=== PATIENT | female | born 1985 | race Caucasian/White ===

== ENCOUNTER → 2017-10-10 | Outpatient (CLI) | payer BC ==
[~2017-10-10] MED LIST: CYCL10TA29 PO; HYDR-4309 PO; IBU800 PO; IBUP600T22 PO; IOPAMIDOL 76% 75 ML INFUS BTL 75 ML ONE; KET10 PO; LOR5 PO; NS 0.9% 20 ML SDV 40 ML ONE
[2017-10-10 12:25] LABS: PLATELET COUNT, AUTOMATED 266 K/uL (150-450)
--- NOTE | 2017-10-10 17:18 | RADIOLOGY IMAGING REPORT ---
FACILITY: [facility] PATIENT NAME: Lili Vincent : 1985 MR: [id number] V: [id number] EXAM DATE: ORDERING PHYSICIAN: KAMILA TAM TECHNOLOGIST: Location: [facility] Patient: Lili Vincent : 1985 Visit/Account:[id number] Date of Sevice: 10/10/2017 Computed tomograpy abdomen and pelvis with IV contrast Indication: Right lower quadrant pain. Fever. Comparison: None available. . Technique: Transaxial computed tomography images were obtained through the abdomen and pelvis follo wing the injection of nonionic iodinated intravenous contrast. Reformatted coronal and sagittal image s were also obtained. One of the following dose optimization techniques was utilized in the performance of this exam: Autom ated exposure control; adjustment of the mA and/or kV according to the patient's size; or use of an i terative reconstruction technique. Specific details can be referenced in the facility's radiology C T exam operational policy. Contrast: 75 ml of Isovue-370 IV contrast. Findings: Lower lung sidhu: Limited views lower lung field are unremarkable. Liver: No focal parenchymal abnormality of the liver. Biliary: Gallbladder is partially contracted. No biliary dilatation. Pancreas: Normal appearance. Spleen: Normal appearance. Adrenal glands: Unremarkable. Kidneys / retroperitoneum: No evidence of nephrolithiasis or hydronephrosis Bowel / peritoneum / mesenteries: The appendix is abnormally dilated and thick walled within the righ t pelvis anteriorly. There is surrounding inflammatory stranding. There is a small calcified phleboli th within the base of the appendix. Findings are compatible with acute appendicitis. There is no extr aluminal gas or fluid collection. There are scattered mildly enlarged reactive lymph nodes within the ileocolonic mesentery. No evidence of small bowel dilatation. Lymph node assessment: No pathologic adenopathy identified. Pelvic structures: There is trace free pelvic fluid. There is oval-shaped cyst within the right ov chioma measuring up to 2.6 cm in size. This is likely physiologic in a female this age. Vessels: No significant atherosclerotic calcifications seen throughout a nonaneurysmal abdominal aort a and branches. Musculoskeletal / Body wall: Sclerosis is seen within the parasymphyseal pubic bones which is likely degenerative. No widening of the pubic symphysis. There is likely unilateral right-sided osteitis con densans ilii present. IMPRESSION: 1. CT findings compatible with acute appendicitis. No evidence of extraluminal gas or pelvic abscess. There are reactive surrounding lymph nodes. 2. Small right ovarian cyst, likely physiologic in a female patient this age. 3. Trace free pelvic fluid. Results were discussed with KAMILA TAM at 10/10/2017 5:14 PM. Report Dictated By: Camilo Bates at 10/10/2017 4:27 PM Report E-Signed By: Camilo Bates at 10/10/2017 5:14 PM WSN:[id number]
== END ==
LOC: CT 12:07
PROVIDERS: ATTEND Nurse Practitioner Family
DX: R93.5 Abnormal findings on diagnostic imaging of other abdominal regions, including retroperitoneum (principal); N83.201 Unspecified ovarian cyst, right side
CPT/HCPCS: 36415; 74177; 82565; 85025; J7050; Q9967

== ENCOUNTER → 2017-10-10 | Day surgery (SDC) | payer BC ==
[~2017-10-10] VITALS: Ht 170.2 cm; Wt 100.7 kg
[~2017-10-10] MED LIST changes: +DEXAMETHASONE SOD 4 MG/ML VIAL ONE; +FAMOTIDINE 20 MG/50 ML PREMIX IVPB ONE; -IOPAMIDOL 76% 75 ML INFUS BTL 75 ML ONE; +KETOROLAC 30 MG/ML VIAL ONE; +LIDOCAINE MPF 1% 5 ML VIAL ONE; +LIDOCAINE/SOD BICARB 8.4% SYR ID ONE; +MIDAZOLAM 2 MG/2 ML VIAL IVP PRN; +NORMOSOL R SOLN(*) 1000 ML BAG 1,000 ML IV PRN; -NS 0.9% 20 ML SDV 40 ML ONE; +ONDANSETRON 4 MG/2 ML VIAL ONE; +PROPOFOL EMUL(*) 10MG/ML 20 ML 20 ML ONE; +ROCURONIUM BROM 10 MG/ML 10 ML ONE; +ROPIVACAINE 0.2% 20 ML VIAL ONE; +SUGAMMADEX SOD 200 MG/2 ML SDV ONE; +cefOXitin/DEX(*) 2GM/50ML PREM 50 ML IVPB ONE; +fentaNYL CITR 100 MCG/2 ML AMP ONE; +fentaNYL CITR 250 MCG/5 ML AMP ONE
--- NOTE | 2017-10-10 17:37 | General Surgery 1 H&P ---
History of Present Illness Chief Complaint right lower quadrant pain History of Present Illness 32 yo female with a four day history of right lower quadrant pain. it has increased in severity. it is a steady aching pain. no nausea or emesis. she has had a fever. she has an appetite. she has some pain with bm and urination. ct obtained which shows findings consistent with appendicitis. History Other Past Surgeries: tonsil Home Meds Active Scripts Ibuprofen (IBUPROFEN) 600 Mg Tablet, 1 TAB PO Q6H, #40 TAB Prov:JIN IBRAHIM 05/07/16 Cyclobenzaprine Hcl (CYCLOBENZAPRINE HCL) 10 Mg Tablet, 5-10 MG PO TID Y for MUSCLE SPASMS, #15 TAB Prov:JIN IBRAHIM 05/07/16 Allergies: Coded Allergies: No Known Drug Allergies (Verified , 05/07/16) Review of Systems History of Hypertension?: No History of Diabetes?: No History of DVT?: No Obstructive Sleep Apnea?: No History of Liver Disease?: No History of Kidney Disease?: No Respiratory: Denies Shortness of Breath, Denies Other Cardiovascular: Denies Chest Pain, Denies Other Exam General Appearance: Alert, Awake GI: Other (she has tenderness and guarding in the right lower quadrant) Assessment and Plan Problems: (1) Appendicitis Assessment & Plan: lap appy Copies to: KENDY GANNON MD; KAMILA TAM Venous Thromboembolism Antithrombotics Is Pt On Any Antithrombotics?: No KENDY GANNON MD Oct 10, 2017 17:37
--- NOTE | 2017-10-10 17:38 | Post Operative Progress Note ---
Post Operative Progress Note Date: Oct 10, 2017 Time: 18:35 Surgeon: catrachita Anesthesia: dr young Pre-Op Diagnosis: appendicitis Post-Op Diagnosis: same Procedure(s): KENDY Daniels MD Oct 10, 2017 17:38
--- NOTE | 2017-10-10 17:39 | Short(Outpt) Discharge Summary ---
Discharge Summary Reason for Hosp/Final Diag: (1) Appendicitis Hospital Course & Plan: dawson norris, she had an acutely inflamed appendix Departure Discharge to: Home Discharge Instructions Home Meds Active Scripts Ibuprofen (IBUPROFEN) 600 Mg Tablet, 1 TAB PO Q6H, #40 TAB Prov:JIN IBRAHIM [facility] 05/07/16 Cyclobenzaprine Hcl (CYCLOBENZAPRINE HCL) 10 Mg Tablet, 5-10 MG PO TID Y for MUSCLE SPASMS, #15 TAB Prov:JIN IBRAHIM [facility] 05/07/16 Diet: Regular Activity: As Tolerated Special Instructions: ice to incisions for 48 hours remove bandage and shower saturday to see me in one week, call [phone] for apt scripts for toradol and norco given to KENDY Sterling MD Oct 10, 2017 17:39
[2017-10-10 17:44] VITALS: BP 135/85
[2017-10-10 19:30] VITALS: BP 111/75
[2017-10-10 19:45] VITALS: BP 114/64
[2017-10-10 19:52] VITALS: BP 118/77
[2017-10-10 19:55] VITALS: BP 114/82
--- NOTE | 2017-10-10 23:13 | OPERATIVE REPORT 1 ---
EVENT DATE: October 10, 2017 SURGEON: Frandy Mcfarland MD ANESTHESIOLOGIST: Darrell Crook MD ANESTHESIA: General. PREOPERATIVE DIAGNOSIS Acute appendicitis. POSTOPERATIVE DIAGNOSIS Acute appendicitis. PROCEDURE PERFORMED Laparoscopic appendectomy. DESCRIPTION OF PROCEDURE The patient was placed in the supine position and given general anesthetic. Her abdomen was prepped and draped in a sterile fashion. The skin was anesthetized with 0.2% ropivacaine. A small incision was made above the umbilicus. A Veress needle was inserted. The abdomen was insufflated with CO2. A 5 mm port was placed under direct vision. We then placed a 5 mm port in the left lower quadrant and a 10 mm port in the suprapubic region. We placed the patient in Trendelenburg and rotated to the left. We went to the right lower quadrant and identified an acutely inflamed, thickened appendix. It was grasped and raised to the anterior abdominal wall. The mesoappendix was divided with the Harmonic scalpel to the appendiceal-cecal junction. We then placed an 0 chromic Endoloop there, placed two 0 PDS Endoloops distal to this, and cut between the two PDS Endoloops. We placed the appendix in an Endo Pouch and removed it from the field. We then inspected for bleeding. We had perfect hemostasis. The ports were removed under direct vision. No bleeding was noted. The skin was closed with interrupted 4-0 Maxon. Steri-Strips and an Airstrip were placed. The patient tolerated the procedure well with no apparent complication. DENTON
== END ==
LOC: OR 16:52
PROVIDERS: ATTEND Surgery
DX: K35.80 Unspecified acute appendicitis (principal)
CPT/HCPCS: 44970; J0694; J1100; J1885; J2001; J2250; J2405; J2704; J2795; J3010; J3490; 88304

== ENCOUNTER → 2017-10-23 | Outpatient (CLI) | payer BC ==
[~2017-10-23] MED LIST changes: -DEXAMETHASONE SOD 4 MG/ML VIAL ONE; -FAMOTIDINE 20 MG/50 ML PREMIX IVPB ONE; -KETOROLAC 30 MG/ML VIAL ONE; -LIDOCAINE MPF 1% 5 ML VIAL ONE; -LIDOCAINE/SOD BICARB 8.4% SYR ID ONE; -MIDAZOLAM 2 MG/2 ML VIAL IVP PRN; -NORMOSOL R SOLN(*) 1000 ML BAG 1,000 ML IV PRN; -ONDANSETRON 4 MG/2 ML VIAL ONE; -PROPOFOL EMUL(*) 10MG/ML 20 ML 20 ML ONE; -ROCURONIUM BROM 10 MG/ML 10 ML ONE; -ROPIVACAINE 0.2% 20 ML VIAL ONE; -SUGAMMADEX SOD 200 MG/2 ML SDV ONE; -cefOXitin/DEX(*) 2GM/50ML PREM 50 ML IVPB ONE; -fentaNYL CITR 100 MCG/2 ML AMP ONE; -fentaNYL CITR 250 MCG/5 ML AMP ONE
--- NOTE | 2017-10-23 15:09 | RADIOLOGY IMAGING REPORT ---
FACILITY: [facility] PATIENT NAME: Lili Vincent : 1985 MR: [id number] V: [id number] EXAM DATE: ORDERING PHYSICIAN: KAMILA TAM TECHNOLOGIST: Location: [facility] Patient: Lili Vincent : 1985 Visit/Account:[id number] Date of Sevice: 10/23/2017 PELVIC ultrasound HISTORY: 32-year-old female with pelvic pain. TECHNIQUE: There has been satisfactory transvaginal and transabdominal ultrasonic evaluation of the p marcus. COMPARISON: CT scan abdomen and pelvis October 10, 2017. FINDINGS: Uterus: Mildly retroverted; it measures: 7.7 cm length x 3.8 cm AP x 0.7 cm transverse. Myometrium: There is a small 9 x 8 mm fibroid in the posterior uterine segment.. Endometrium: Unremarkable; endometrial thickness 10 mm. Cervix: Grossly negative. Ovaries: Right - the right ovary measures 3.4 x 1.9 x 2.8 cm. There are multiple follicular cysts within the right ovary. The largest cyst measures 1.9 cm in size. It likely represents a persistent lutea l cyst. Left - the left ovary measures 2.7 x 1.6 x 1.7 cm in size. It has multiple small follicular cys ts. Blood flow is documented in each ovary by duplex Doppler ultrasound. Adnexa: Grossly unremarkable. Free pelvic fluid: There is a small amount of fluid in the pelvis.. Bladder: Bladder is unremarkable during transabdominal imaging. IMPRESSION: 1. There is a small 8 x 9 mm fibroid in the posterior wall the lower uterine segment. 2. There is a persistent luteal cyst in the right ovary that measures 1.9 cm in size. 3. Normal left ovary. Report Dictated By: Rio Chavez MD at 10/23/2017 2:29 PM Report E-Signed By: Rio Chavez MD at 10/23/2017 3:03 PM WSN:[email or web address]
== END ==
LOC: US 01:01
PROVIDERS: ATTEND Nurse Practitioner Family
DX: N83.201 Unspecified ovarian cyst, right side (principal); D25.9 Leiomyoma of uterus, unspecified
CPT/HCPCS: 76856

== ENCOUNTER → 2018-01-20 | Outpatient (CLI) | payer BC | LOC: LAB 01-10 11:12 | PROVIDERS: ATTEND Family Medicine Sports Medicine | DX: E03.9 Hypothyroidism, unspecified (principal); R53.83 Other fatigue; R63.5 Abnormal weight gain | CPT/HCPCS: 36415; 82670; 83001; 83002; 84144; 84403 ==